=== PATIENT | female | born 1975 | race Caucasian/White ===

== ENCOUNTER → 2019-06-04 | Outpatient (REF) | payer MEDICARE ==
[2019-06-04 21:37] LABS: CHLAMYDIA DNA AMPLIFICATION NEGATIVE (NEGATIVE); GC DNA AMPLIFICATION NEGATIVE (NEGATIVE)
== END ==
LOC: M LAB REF 16:59
PROVIDERS: ATTEND Advanced Practice Midwife
DX: Z12.4 Encounter for screening for malignant neoplasm of cervix (principal); Z11.3 Encounter for screening for infections with a predominantly sexual mode of transmission; B37.3 Candidiasis of vulva and vagina
CPT/HCPCS: 87491; 87591; 87624; G0123

== ENCOUNTER → 2019-06-11 | Outpatient (CLI) | payer MEDICARE ==
--- NOTE | 2019-06-11 16:33 | REPMRS ---
Patient History The patient states she has not had a clinical breast exam in over a year. Patient is nulliparous. Family history of lung cancer in mother. Digital Mammo Screening Bilat: June 11, 2019 - Exam #: [id number] Bilateral CC and MLO view(s) were taken. Technologist: Rashmi Andujar, Technologist No prior studies available for comparison. FINDINGS: The breast tissue is heterogeneously dense. This may lower the sensitivity of mammography. There is no evidence of dominant mass, architectural distortion, or grouped microcalcification typical of malignancy. Assessment: BI-RADS/ACR category 1 mammogram. Negative Mammogram. Recommendation Routine screening mammogram of both breasts in 1 year (for women over age 40). This patient's Lifetime Breast Cancer RIsk is estimated at 14.4 %. This mammogram was interpreted with the aid of an FDA-approved computer-aided dectection system. Electronically Signed By: Bi Mccabe MD 06/11/19 [id number]
== END ==
LOC: M RAD 14:23
PROVIDERS: ATTEND Advanced Practice Midwife
DX: Z12.31 Encounter for screening mammogram for malignant neoplasm of breast (principal)

== ENCOUNTER → 2024-04-08 | Outpatient (REF) | payer MEDICARE, MEDICAID ==
[2024-04-10 18:59] LABS: HPV APTIMA Not Detected (Not Detected)
== END ==
LOC: M LAB REF 17:42
PROVIDERS: ATTEND Advanced Practice Midwife
DX: Z12.4 Encounter for screening for malignant neoplasm of cervix (principal); R87.610 Atypical squamous cells of undetermined significance on cytologic smear of cervix (ASC-US); R87.5 Abnormal microbiological findings in specimens from female genital organs
CPT/HCPCS: 87624; G0123